=== PATIENT | female | born 1965 | race Hispanic/Latino ===

== ENCOUNTER 2020-01-01 13:06 | Observation (INO) ==
[2020-01-01] MEDS ORDERED: IOPAMIDOL 100 ML BOTTLE IV ONE (13:07)
[2020-01-01] MEDS ORDERED: 0.9 % SODIUM CHLORIDE 1,000 ML IV ONE (13:29)
[2020-01-01] MEDS ORDERED: HYDROmorphone 0.5 MG/0.5 ML SYRINGE IV PRN ×2 (13:33→18:15)
[2020-01-01] MEDS ORDERED: ONDANSETRON 4 MG/2 ML VIAL IV ONE (13:33)
--- NOTE | 2020-01-01 13:33 | Emergency Department Note ---
Syncope HPI General Chief Complaint: Syncope Stated Complaint: syncope Time Seen by Provider: 01/01/20 13:13 Source: patient Mode of arrival: ambulatory Limitations: no limitations History of Present Illness HPI Narrative: 54-year-old female comes in for 2-hour history of right lower quadrant abdominal pain that came on suddenly. No previous history of this. She still has her appendix. As her pain increased in severity she suddenly collapsed. Bystanders were able to catch her and she came around slowly. She did not hurt herself when she collapsed. Denies any fever chills nausea vomiting diarrhea difficulty urinating difficulty breathing or recent illness. Her pain has subsided somewhat Related Data Previous Rx's Medication Instructions Recorded albuterol sulfate 90 mcg/actuation 2 puff INHALATION .q4-6h PRN #8.5 g 03/17/19 aerosol inhaler Allergies Allergy/AdvReac Type Severity Reaction Status Date / Time codeine Allergy Intermediate Anaphylaxis Verified 11/06/19 13:57 Penicillins Allergy Anaphylaxis Verified 11/06/19 13:57 Review of Systems ROS Narrative: Narrative: All systems ED: reviewed and negative except as stated. [facility] Narrative Patient History Narrative: Narrative: Medical/Surgical/Family History All Active Problems (Updated 01/01/20 @ 13:37 by Olvin Lechuga MD) Upper respiratory infection (Acute) Episode of syncope (Acute) Fatty liver (Chronic) Diverticulitis (Acute) Obesity (BMI 30-39.9) (Chronic) Hyperglycemia (Chronic) Hyperlipidemia (Chronic) Osteopenia (Chronic 12/08/14) Asthma (Chronic) Personal history of colonic polyps (Chronic) Family history of colon cancer in mother (Chronic) Leiomyoma of body of uterus (Chronic) Medical History Abdominal pain (Resolved) Acute asthmatic bronchitis (Resolved) Asthma (Chronic) Asthma with acute exacerbation (Resolved) Asthma with exacerbation (Inactive) Bronchitis (Resolved) Bronchitis (Inactive) Colon polyps (Inactive) Depression (Inactive) Diverticulitis (Resolved) Diverticulitis of colon (Resolved 11/09/14) Dr. Muir Diverticulosis of colon (Inactive 12/08/14) Family history of colon cancer in mother (Chronic) Fatigue (Resolved) Fatty liver (Chronic) seen on CT 05/05/19 Hyperglycemia (Chronic) Hyperlipidemia (Chronic) Internal hemorrhoids (Inactive) Left knee pain (Resolved) likely Early OA, responded to PT. Leiomyoma of body of uterus (Chronic) Nausea with vomiting (Resolved) Obesity (BMI 30-39.9) (Chronic) Osteopenia (Chronic 12/08/14) Personal history of colonic polyps (Chronic) Physical exam, annual (Inactive) Rectal bleeding (Inactive) h/o int hemorrhoids, RLQ abdominal pain (Resolved) Viral gastroenteritis (Resolved) Surgical History H/O colonoscopy (Inactive) Micro: Tubular adenoma -- Consult: Polyp, diverticulosis, hemorrhoids -- Co nsult: adenomatous polyp, hemorrhoid, multiple small diverticula 2009 H/O hysterectomy for benign disease (Chronic) H/O removal of cyst (Inactive) November 1983 L breast cyst removal / 1996 had bilateral cyst removal from ovaries. History of esophagogastroduodenoscopy (EGD) (Acute) 04/04/2017-with biopsies Hx of tonsillectomy (Inactive) 1971 Family History Uncle Glaucoma Grandfather Disease of lung Maternal Grandfather; Had lung cancer - was a smoker. Social History Smoking Status: Never smoker Alcohol Intake Frequency: does not drink Substance Use: does not use Exam Narrative Narrative: No acute distress. Resting. Normocephalic atraumatic. Conjunctive are clear sclerae white nonicteric. No nasal discharge or congestion. Oropharynx pink and moist. Neck is supple without lymphadenopathy or thyromegaly. Heart is regular rate and rhythm no murmur appreciated. Lungs clear to auscultation bilaterally without wheezes rales rhonchi or respiratory distress. Abdomen is soft nontender nondistended except for McBurney's point which is markedly tender. Hypoactive bowel sounds. No pedal edema. +2 radial pulse. Alert oriented able to give me reasonable history General Limitations: no limitations Course Vital Signs Vital signs: Vital Signs Temperature 98.0 F 01/01/20 13:07 Pulse Rate 82 01/01/20 13:07 Respiratory Rate 16 01/01/20 13:07 Blood Pressure 132/85 01/01/20 13:07 Pulse Oximetry (%) 100 01/01/20 13:07 Temperature 98.0 F 01/01/20 13:07 Pulse Rate 74 01/01/20 14:14 Respiratory Rate 18 01/01/20 14:14 Blood Pressure 84/57 01/01/20 14:02 Pulse Oximetry (%) 99 01/01/20 14:14 MDM MDM Narrative Medical decision making narrative: Right lower quadrant pain followed by syncopal episode. Suspect acute appendicitis with possible rupture versus anemia versus dehydration versus arrhythmia versus other intra-abdominal pathology. Ordered CT scan of the abdomen and pelvis along with laboratory. Start Dilaudid IV fluids and Zofran. Check orthostatics and EKG CT scan of the abdomen and pelvis came back first and shows acute appendicitis with a size of 1.3 cm. Some stranding with that. She does not have a leukocytosis nor fever at this time however. CMP and urinalysis are still pending I discussed the case with Dr. Zeferino Vyas, general surgeon who agreed to accept the patient for further care and evaluation in the hospital. I wrote transition orders. He will see her when she gets to the hospital floor. In the interim I wrote for a dose of Ancef. Lab Data Result diagrams: 01/01/20 13:50 01/01/20 13:50 Labs: Lab Results 01/01/20 01/01/20 01/01/20 Range/Units 13:50 13:50 13:50 WBC 9.7 (4.50-11.00) K/mcL RBC 4.26 (3.59-5.38) M/mcL Hgb 13.3 (11.2-15.7) g/dL Hct 39.9 (34.1-44.9) % POC Hct 42.0 (36.0-48.0) % MCV 93.7 (80.0-100.0) fL MCH 31.2 (26.0-34.0) pg MCHC 33.3 (31.0-36.0) g/dL RDW 12.4 (11.5-14.5) % Plt Count 277 (140-440) K/mcL MPV 10.6 H (7.4-10.4) fL Gran % 72.0 (38.0-78.0) % Lymph % (Auto) 20.0 (15.5-49.0) % Foster % (Auto) 5.0 (1.0-12.0) % Eos % (Auto) 2.7 (0.0-7.0) % Baso % (Auto) 0.3 (0.0-2.0) % Gran # 6.96 (1.80-8.00) K/mcL Lymph # (Auto) 1.93 (1.50-4.80) K/mcL Foster # (Auto) 0.48 (0.10-0.90) K/mcL Eos # (Auto) 0.26 (0.00-0.70) K/mcL Baso # (Auto) 0.03 (0.00-0.30) K/mcL VBG Lactic Acid 1.0 (0.5-2.0) mmol/L POC Sodium 141 (133-145) mmol/L POC Potassium 3.7 (3.3-5.1) mmol/L POC Chloride 104 (96-108) mmol/L POC Total CO2 26 (22-30) mmol/L POC BUN 11 (6-20) mg/dl POC Creatinine 0.7 (0.6-1.1) mg/dl POC Glucose 136 H (70-105) mg/dL POC WB Ioniz Calcium 1.19 (1.16-1.32) mmol/L EKG Data EKG #1: EKG attestation: Yes I reviewed and interpreted this EKG. EKG results narrative: Normal sinus rhythm without ACS Discharge Plan Patient/Caregiver Discharge Instructions Pt seen by BIOMEDICAL ENGINEERING TECHNOLOGIST/PA only: No Clinical Impression: Episode of syncope Qualifiers: Syncope type: unspecified Qualified Code(s): R55 - Syncope and collapse Patient Disposition: Home, Self-Care Follow up with: Lisbet Rubio DO [Primary Care Provider] - Prescriptions: No Action albuterol sulfate [ProAir HFA] 90 mcg/actuation HFA aerosol inhaler 2 puff inhalation .q4-6h PRN (Reason: cough, shortness of breath, wheezing) Qty: 8.5 RF: 0
[2020-01-01 14:04] LABS: POC Blood Urea Nitrogen 11 mg/dl (6-20); POC CO2 26 mmol/L (22-30); POC Calcium, Ionized 1.19 mmol/L (1.16-1.32); POC Chloride 104 mmol/L (96-108); POC Creatinine 0.7 mg/dl (0.6-1.1); POC Glucose, Random 136 mg/dL (70-105); POC Potassium 3.7 mmol/L (3.3-5.1); POC Sodium 141 mmol/L (133-145)
[2020-01-01 14:35] LABS: Basophils # (Auto) 0.03 K/mcL (0.00-0.30); Basophils % (Auto) 0.3 % (0.0-2.0); Eosinophils # (Auto) 0.26 K/mcL (0.00-0.70); Eosinophils % (Auto) 2.7 % (0.0-7.0); Hematocrit 39.9 % (34.1-44.9); Hemoglobin 13.3 g/dL (11.2-15.7); Lymphocytes # (Auto) 1.93 K/mcL (1.50-4.80); Mean Cell Volume 93.7 fL (80.0-100.0); Mean Corpuscular HGB Conc 33.3 g/dL (31.0-36.0); Mean Platelet Volume 10.6 fL (7.4-10.4); Monocytes # (Auto) 0.48 K/mcL (0.10-0.90); Platelet Count 277 K/mcL (140-440); RBC 4.26 M/mcL (3.59-5.38); Red Cell Distribution Width 12.4 % (11.5-14.5); WBC 9.7 K/mcL (4.50-11.00)
--- NOTE | 2020-01-01 14:43 | Cat Scan Report ---
History: Right lower quadrant pain TECHNIQUE: The patient was imaged following intravenous but no oral contrast scanning from the diaphragm to the symphysis pubis. Sagittal and coronal reformats were created. The radiation exposure was limited using dose reduction technology. FINDINGS: The liver and spleen are normal in size and homogeneous. The gallbladder is partially contracted but appears normal. There are no stones in the bile ducts are nondilated. The pancreas, adrenals and kidneys are normal. There is no kidney stone or hydronephrosis. The appendix is abnormally thickened and inflamed. On the sagittal reformatted view the appendix measures 13 mm in AP dimension. There is no evidence of rupture. No abscess or ascites or free intraperitoneal air are present. There is no bowel obstruction. There is chronic infiltration of the fat at the root of the mesentery. This was seen on prior CT done on 05/05/19 and may be due to chronic low-grade inflammation. No abnormally enlarged lymph nodes are present in the abdomen or pelvis. The urinary bladder is moderately distended with unopacified urine. Patient's had prior partial hysterectomy performed. Neither ovary is clearly identified. The patient reportedly had one of the ovaries removed. IMPRESSION: Acute appendicitis Dr. Lechuga was called with the results Interpreted and Authenticated by: Kirill Morales 01/01/20
[2020-01-01] MEDS ORDERED: ceFAZolin 1 GM VIAL IV ONE (14:48)
[2020-01-01] MEDS ORDERED: ONDANSETRON 4 MG/2 ML VIAL IV PRN ×3 (14:49→18:57)
[2020-01-01] MEDS ORDERED: ALBUTEROL SULFATE 200 PUFF INHALER INH PRN ×3 (14:51→18:57)
[2020-01-01 14:53] LABS: ALT/SGPT 16 U/l (0-40); AST/SGOT 19 U/l (0-37); Albumin 4.6 gm/dL (3.2-5.2); Albumin/Globulin Ratio 1.5 (1.0-2.3); Alkaline Phosphatase 101 U/L (39-117); Bilirubin,Total 0.2 mg/dL (0.0-1.0); Blood Urea Nitrogen 11 mg/dl (6-20); Calcium 9.7 mg/dl (8.6-10.4); Carbon Dioxide 25 mmol/L (22-30); Chloride 102 mmol/L (96-108); Glomerular Filtration Rate 97; Glucose 133 mg/dL (70-105)
[2020-01-01 14:57] LABS: INR 0.8 (0.9-1.1)
[2020-01-01] MEDS ORDERED: LEVOFLOXACIN 750 MG/150 ML BAG IV ONE (15:49)
--- NOTE | 2020-01-01 16:04 | General Surg History&Physical ---
HPI History of Present Illness Patient information: Note initiated : 01/01/20 at 3:59 pm Service Date, if different from initiated Date: [] Patient: Mary Morales a 54 y/o F admitted on 01/01/20 for syncope. Chief Complaint: [] Chief complaint: abdominal pain History of present illness: Ms. Morales is a 54 year old F acute OF right lower quadrant pain about 10:30 this morning. The pain became progressively worse until she started to feel dizzy and had a syncopal episode. She was transferred to the emergency room where evaluation revealed inflammation of the appendix with periappendiceal edema compatible with acute appendicitis. She did not have nausea vomiting. She has not had similar difficulty. Review of Systems All systems: reviewed and no additional remarkable complaints except as stated PFSH [facility] Medical History Abdominal pain (Resolved) Acute asthmatic bronchitis (Resolved) Asthma (Chronic) Asthma with acute exacerbation (Resolved) Asthma with exacerbation (Inactive) Bronchitis (Resolved) Bronchitis (Inactive) Colon polyps (Inactive) Depression (Inactive) Diverticulitis (Resolved) Diverticulitis of colon (Resolved 11/09/14) Dr. Miur Diverticulosis of colon (Inactive 12/08/14) Family history of colon cancer in mother (Chronic) Fatigue (Resolved) Fatty liver (Chronic) seen on CT 05/05/19 Hyperglycemia (Chronic) Hyperlipidemia (Chronic) Internal hemorrhoids (Inactive) Left knee pain (Resolved) likely Early OA, responded to PT. Leiomyoma of body of uterus (Chronic) Nausea with vomiting (Resolved) Obesity (BMI 30-39.9) (Chronic) Osteopenia (Chronic 12/08/14) Personal history of colonic polyps (Chronic) Physical exam, annual (Inactive) Rectal bleeding (Inactive) h/o int hemorrhoids, RLQ abdominal pain (Resolved) Viral gastroenteritis (Resolved) Surgical History H/O colonoscopy (Inactive) Micro: Tubular adenoma -- Consult: Polyp, diverticulosis, hemorrhoids -- Consult: adenomatous polyp, hemorrhoid, multiple small diverticula 2009 H/O hysterectomy for benign disease (Chronic) H/O removal of cyst (Inactive) November 1983 L breast cyst removal / 1996 had bilateral cyst removal from ovaries. History of esophagogastroduodenoscopy (EGD) (Acute) 04/04/2017-with biopsies Hx of tonsillectomy (Inactive) 1971 Family History Uncle Glaucoma Grandfather Disease of lung Maternal Grandfather; Had lung cancer - was a smoker. 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 smoking status: Never smoker alcohol intake frequency: does not drink substance use type: does not use MEDS/ALLERGIES Home Medications and Allergies Home Medications Medication Instructions Recorded Confirmed Type albuterol sulfate 90 mcg/actuation 2 puff INHALATION .q4-6h PRN #8.5 g 03/17/19 01/01/20 Rx aerosol inhaler Allergies Allergy/AdvReac Type Severity Reaction Status Date / Time codeine Allergy Severe Anaphylaxis Verified 01/01/20 15:54 Penicillins Allergy Severe Anaphylaxis Verified 01/01/20 15:54 Physical Examination Vital Signs Vital signs: Temp Pulse Resp BP Pulse Ox 97.5 F 93 H 18 129/77 98 01/01/20 15:52 01/01/20 15:52 01/01/20 15:52 01/01/20 15:52 01/01/20 15:52 General physical appearance General physical exam: well developed, well nourished and no distress Eyes Eye exam: PERRL and normal ocular movement; negative pale and icteric ENT ENT exam: normal pinna, normal nares and normal mucosa; negative no hearing loss Head Head exam IM: Present atraumatic, normal inspection and normocephalic Neck Neck exam: no masses, no bruits, trachea midline, no lymphadenopathy and no venous distension Cardiovascular Cardiovascular exam IM: Present normal rate and rhythm, RRR, +S1 and +S2; Absent gallop and JVD Respiratory Respiratory exam: normal expansion, normal respiratory effort, clear to percussion, clear to auscultation and other Abdomen Abdomen: Present soft, tender (tenderness in right lower quadrant with guarding) and bowel sounds (normal active bowel sounds); Absent organomegaly Integumentary Integumentary: Present no rash, no growths, no abnormal pigmentation and other Neurologic Neurologic: Present normal coordination and normal sensation; Absent confused and memory loss Musculoskeletal Musculoskeletal: Present normal gait, normal posture and other Psychiatric Psychiatric: Present oriented to time, oriented to person, oriented to place, speech is normal, memory intact and other Results Labs Result diagrams: 01/01/20 13:50 01/01/20 13:50 Labs: Abnormal lab results 01/01/20 01/01/20 01/01/20 Range/Units 13:50 13:50 13:50 MPV 10.6 H (7.4-10.4) fL INR 0.8 L (0.9-1.1) Glucose 133 H (70-105) mg/dL POC Glucose 136 H (70-105) mg/dL Diabetes panel 01/01/20 Range/Units 13:50 Sodium 139 (133-145) mmol/L Potassium 3.7 (3.3-5.1) mmol/L Chloride 102 (96-108) mmol/L Carbon Dioxide 25 (22-30) mmol/L BUN 11 (6-20) mg/dl Creatinine 0.7 (0.6-1.1) mg/dl Glucose 133 H (70-105) mg/dL Calcium 9.7 (8.6-10.4) mg/dl AST 19 (0-37) U/l ALT 16 (0-40) U/l Alkaline Phosphatase 101 (39-117) U/L Total Protein 7.6 (5.9-8.4) gm/dL Albumin 4.6 (3.2-5.2) gm/dL Calcium panel 01/01/20 Range/Units 13:50 Calcium 9.7 (8.6-10.4) mg/dl Albumin 4.6 (3.2-5.2) gm/dL Pituitary panel 01/01/20 Range/Units 13:50 Sodium 139 (133-145) mmol/L Potassium 3.7 (3.3-5.1) mmol/L Chloride 102 (96-108) mmol/L Carbon Dioxide 25 (22-30) mmol/L BUN 11 (6-20) mg/dl Creatinine 0.7 (0.6-1.1) mg/dl Glucose 133 H (70-105) mg/dL Calcium 9.7 (8.6-10.4) mg/dl Adrenal panel 01/01/20 Range/Units 13:50 Sodium 139 (133-145) mmol/L Potassium 3.7 (3.3-5.1) mmol/L Chloride 102 (96-108) mmol/L Carbon Dioxide 25 (22-30) mmol/L BUN 11 (6-20) mg/dl Creatinine 0.7 (0.6-1.1) mg/dl Glucose 133 H (70-105) mg/dL Calcium 9.7 (8.6-10.4) mg/dl Total Bilirubin 0.2 (0.0-1.0) mg/dL AST 19 (0-37) U/l ALT 16 (0-40) U/l Alkaline Phosphatase 101 (39-117) U/L Total Protein 7.6 (5.9-8.4) gm/dL Albumin 4.6 (3.2-5.2) gm/dL All other labs normal. Imaging Chest x-ray: report reviewed and image reviewed CT scan - abdomen: report reviewed and image reviewed A/P Narrative A/P Narrative: Narrative:acute appendicitis Plan laparoscopic appendectomy Time Spent With Patient Time: Total time spent is greater than 50% in coordination of care (as documented) at patient's floor/unit and/or counseling patient: Total time spent with greater than 50% in coordination of care (as documented) at patient's floor/unit and/or counseling patient:: 25 - 35 minutes
[2020-01-01] MEDS ORDERED: KETOROLAC 30 MG/ML VIAL IV PRN (16:51)
[2020-01-01] MEDS ORDERED: fentaNYL 100 MCG/2 ML VIAL IV PRN (16:51)
[2020-01-01] MEDS ORDERED: BENZOCAINE/MENTHOL 1 LOZENGE PO PRN (16:51)
[2020-01-01] MEDS ORDERED: PROMETHAZINE 25 MG/ML VIAL IV PRN (16:51)
[2020-01-01] MEDS ORDERED: NALOXONE HCL 0.4 MG/ML VIAL IV PRN (16:51)
[2020-01-01] MEDS ORDERED: diphenhydrAMINE 50 MG/ML VIAL IV PRN (16:51)
[2020-01-01] MEDS ORDERED: IPRATROPIUM/ALBUTEROL 3 ML AMPUL.NEB NEB PRN (16:51)
[2020-01-01] MEDS ORDERED: MEPERIDINE 25 MG/ML SYRINGE IV PRN (16:51)
[2020-01-01] MEDS ORDERED: ACETAMINOPHEN 900 MG/90 ML BOTTLE IV ONE (16:51)
[2020-01-01] MEDS ORDERED: LACTATED RINGERS 250 ML IV PRN (16:51)
[2020-01-01] MEDS ORDERED: LACTATED RINGERS 1,000 ML IV SCH (17:00)
[2020-01-01] MEDS ORDERED: fentaNYL 100 MCG/2 ML VIAL IV ONE (17:09)
[2020-01-01] MEDS ORDERED: SUCCINYLCHOLINE 20 MG/ML ML IV ONE (17:09)
[2020-01-01] MEDS ORDERED: diphenhydrAMINE 50 MG/ML VIAL ONE (17:09)
[2020-01-01] MEDS ORDERED: LIDOCAINE HCL/PF 100 MG/5 ML SYRINGE IV ONE (17:09)
[2020-01-01] MEDS ORDERED: KETAMINE 10 MG/ML ML ONE (17:09)
[2020-01-01] MEDS ORDERED: DEXAMETHASONE 10 MG/ML VIAL ONE (17:09)
[2020-01-01] MEDS ORDERED: SUGAMMADEX SODIUM 200 MG/2 ML VIAL IV ONE (17:09)
[2020-01-01] MEDS ORDERED: ONDANSETRON 4 MG/2 ML VIAL ONE (17:09)
[2020-01-01] MEDS ORDERED: PROPOFOL 200 MG/20 ML VIAL IV ONE (17:09)
[2020-01-01] MEDS ORDERED: ROCURONIUM 10 MG/ML ML IV ONE (17:09)
--- NOTE | 2020-01-01 17:55 | Brief Operative Note ---
Brief Operative Note Date of procedure: 01/01/20 Pre-op diagnosis: acute appendicitis Post-op diagnosis: other (acute appendicitis) Procedure: laparoscopic appendectomy Grafts/Implants: No Anesthesia: GETA Findings: early acute appendicitis Complications: none Surgeon: Carla Vyas Specimens Removed/Pathology: other (appendix) Condition: stable Disposition: PACU
--- NOTE | 2020-01-01 17:56 | Brief Operative Note ---
Brief Operative Note Date of procedure: 01/01/20 Surgeon: Carla Vyas
[2020-01-01] MEDS ORDERED: 0.9 % SODIUM CHLORIDE 1,000 ML IV SCH (18:00)
[2020-01-01] MEDS ORDERED: ACETAMINOPHEN 1,000 MG in PREMIX 1 BAG IV SCH (18:00)
[2020-01-01] MEDS ORDERED: oxyCODONE HCL 5 MG TABLET PO PRN (18:00)
[2020-01-01] MEDS: 0.9 % SODIUM CHLORIDE 1,000 ML IV SCH (19:46)
[2020-01-01] MEDS ORDERED: ZOLPIDEM 5 MG TABLET PO PRN ×2 (21:00)
[2020-01-01] MEDS: ACETAMINOPHEN 900 MG/90 ML BOTTLE IV PRN (23:43)
[2020-01-02] MEDS: oxyCODONE HCL 5 MG TABLET PO PRN ×2 (03:16→08:53)
[2020-01-02] MEDS: 0.9 % SODIUM CHLORIDE 1,000 ML IV SCH ×2 (03:48→12:50)
[2020-01-02] MEDS: ACETAMINOPHEN 900 MG/90 ML BOTTLE IV PRN (06:13)
[2020-01-02 07:28] LABS: Basophils # (Auto) 0.01 K/mcL (0.00-0.30); Basophils % (Auto) 0.1 % (0.0-2.0); Eosinophils # (Auto) 0 K/mcL (0.00-0.70); Eosinophils % (Auto) 0 % (0.0-7.0); Hematocrit 34.3 % (34.1-44.9); Hemoglobin 11.1 g/dL (11.2-15.7); Lymphocytes % (Auto) 5.6 % (15.5-49.0); Mean Cell Volume 96.3 fL (80.0-100.0); Mean Corpuscular HGB Conc 32.4 g/dL (31.0-36.0); Mean Platelet Volume 11.1 fL (7.4-10.4); Monocytes # (Auto) 0.29 K/mcL (0.10-0.90); Monocytes % (Auto) 2.3 % (1.0-12.0); Platelet Count 232 K/mcL (140-440); RBC 3.56 M/mcL (3.59-5.38); Red Cell Distribution Width 12.1 % (11.5-14.5); WBC 12.5 K/mcL (4.50-11.00)
--- NOTE | 2020-01-02 13:27 | Discharge Summary ---
Discharge Provider Provider Patient information: Note initiated : 01/02/20 at 1:22 pm Service Date, if different from initiated Date: [] Patient: Mary Morales 54 y/o F admitted on 01/01/20 for syncope. Chief Complaint: [] Date of admission: 01/01/20 15:28 Discharge date: 01/02/20 Primary care physician: Lisbet Rubio DO Admitting clinician: Carla Vyas Attending physician on admission: Carla Vyas Attending physician on discharge: Carla Vyas Discharging clinician: Carla Vyas COURSE Hospital Course Hospital Course: 54-year-old female with about an 8 hour history of right lower quadrant pain. The pain became progressively worse and she had a near syncopal episode due to pain. She was seen in the emergency room and was noted to have a tender abdomen. CT of the abdomen showed acute appendicitis with thickened appendix with periappendiceal tissue edema. She had laparoscopic appendectomy which went uneventfully. She has recovered from that and has only mild incisional discomf ort. She is tolerating diet and is having regular flatus. She does not have abdominal distention. She is stable for discharge home. Discharge diagnosis: acute appendicitis Reason for admission: acute appendicitis Procedures: laparoscopic appendectomy Pertinent studies/significant findings: CT of abdomen and pelvis with contrast Complications: none Time Spent with Patient Time attestation: Total time spent providing and/or coordinating discharge services: Physical Examination Vital Signs Vital signs: Temp Pulse Resp BP Pulse Ox 98.0 F 85 16 100/65 95 01/02/20 12:00 01/02/20 12:00 01/02/20 12:00 01/02/20 12:00 01/02/20 12:00 Eyes Eye exam: PERRL and normal ocular movement; negative pale and icteric ENT ENT exam: normal pinna, normal nares and normal mucosa; negative no hearing loss Head Head exam IM: Present atraumatic, normal inspection and normocephalic Cardiovascular Cardiovascular exam IM: Present normal rate and rhythm, RRR, +S1 and +S2; Absent gallop and JVD Respiratory Respiratory exam: normal expansion, normal respiratory effort, clear to percussion, clear to auscultation and other Abdomen Abdomen: Present soft, tender (mild tenderness around port sites only; no tenderness in right lower quadrant) and surgical scars (port sites are unremarkable without bleeding) Neurologic Neurologic: Present normal coordination and normal sensation; Absent confused and memory loss Musculoskeletal Musculoskeletal: Present normal gait, normal posture and other Psychiatric Psychiatric: Present oriented to time, oriented to person, oriented to place, speech is normal, memory intact and other Discharge Plan Patient/Caregiver Discharge Instructions Activity: increase activity as tolerated Diet: Regular Diet Activity Restrictions/Additional Instructions: may resume activity as tolerated; no lifting restrictions Prescriptions: New oxycodone 5 mg Tablet 10 mg PO Q4HP PRN (Reason: Per Pain Protocol) Qty: 20 RF: 0 Continued albuterol sulfate [ProAir HFA] 90 mcg/actuation HFA aerosol inhaler 2 puff inhalation .q4-6h PRN (Reason: cough, shortness of breath, wheezing) Qty: 8.5 RF: 0 Follow Up Plan Follow up with: Lisbet Rubio DO [Primary Care Provider] - Carla Vyas MD [Physician] - (contact the office on Saturday for an appoi ntment in 2 weeks) Patient Disposition: Home, Self-Care Assessment: patient is stable and is discharged home in satisfactory condition Prognosis: Good Rehab Potential: Good I certify that the patient requires SNF services: No Overall status at discharge: patient is progressing back to baseline Discharge Orders: Discharge Order (Routine); Ordered 01/02/20 Ordered By: Carla Vyas Pending Pending Pending: Resuscitation Status Full Code Diet Full Liquid Diet Start SatDec 31 180 Acetaminophen (Ofirmev) 900 mg in 90 mls @ 180 mls/hr IV Q6HP PRN PRN Reason: PAIN/FEVER > 101 Stop: 01/02/20 18:01 Last Admin: 01/02/20 06:13 Dose: 180 mls/hr Documented by: Infusion: 01/02/20 00:19 Dose: 0 mls/hr Documented by: Admin: 01/01/20 23:43 Dose: 180 mls/hr Documented by: JAKOB Sodium Chloride (Sodium Chloride 0.9%) 1,000 mls @ 150 mls/hr IV .Q6H40M [facility] Last Admin: 01/02/20 12:50 Dose: Not Given Documented by: [email or web address] Admin: 01/02/20 03:48 Dose: 150 mls/hr Documented by: Infusion: 01/02/20 02:27 Dose: 150 mls/hr Documented by: Admin: 01/01/20 19:46 Dose: 150 mls/hr Documented by: JAKOB Oxycodone HCl (Roxicodone) 10 mg PO Q4HP PRN; Protocol PRN Reason: Per Pain Protocol Last Admin: 01/02/20 08:53 Dose: 10 mg Documented by: [email or web address] Admin: 01/02/20 03:16 Dose: 10 mg Documented by: JAKOB Shift Summary 01/02/20 04:30 Shift Summary by Karyna Oh Patient came back from PACU at 1849H. Patient drowsy at start of shift but more alert this morning. A+O x4. Medicated with PRN Ofirmevx1 and Roxicodone 10mg x1 with moderate effect. Up with standby assist to the bathroom. Uses pillow to guard her incision. Tolerating full liquid diet. No nausea or vomiting. IVF NS@150 infusing well on right hand. 3 lap sites, gino and tegaderm CDI with scant drainage under tegaderm dressing. Ambulated in hallway 200 ft using gait belt and standby assist. Voids adequately, PVR 19 mls. Reported belching and passing flatus. Patient's Ramón mendoza visited last night waited in pt's room until she got back from PACU. BP 90-100 mmHg/50 mmHg. Tachycardic 90-100's HR. Afebrile. Initialized on 01/02/20 04:30 - END OF NOTE
--- NOTE | 2020-01-04 12:36 | Operative Note ---
DATE OF OPERATION: 01/01/2020 PREOPERATIVE DIAGNOSIS: Acute appendicitis. POSTOPERATIVE DIAGNOSIS: Acute appendicitis. PROCEDURE: Laparoscopic appendectomy. SURGEON: Carla Vyas M.D. FINDINGS: Acute appendicitis. DESCRIPTION OF PROCEDURE: Under general anesthesia, the patient's abdomen was prepped and draped in a sterile field. Supraumbilical incision was made and a Veress needle was inserted. The abdomen was insufflated with 2 liters of C02. A 12 mm port was placed. Laparoscope was placed. Under videoscopic guidance, a 5 mm port was placed in the suprapubic midline and a 12 mm port in the left lower quadrant. The patient was placed in deep Trendelenburg position and rotated to the left. The appendix was found at the base of the cecum, and there was an appendicolith in the mid-portion of the appendix. The appendix was grasped with a self-retaining grasper. There was minimal mesoappendix at the base of the appendix and the mesoappendix was transected using an Endo ADE stapler. There was no bleeding. The appendix was placed in an Endopouch and retrieved. Copious irrigation was carried out in the right gutter and in the pelvis. There was no need for a drain. The patient tolerated the procedure well. CO2 was allowed to escape from the abdomen, and the ports were removed. Fascia at umbilicus was closed with 0 Vicryl. The skin incisions were closed with gino. Tegaderm dressings were placed. The patient tolerated the procedure well. She was awakened, transferred to a bed, and taken to the postanesthetic care unit in stable, satisfactory condition. LCS:jenny Job ID: [id number] Doc ID: [id number] Carla Vyas M.D.
--- NOTE | 2020-01-05 15:29 | Surgical Pathology Report ---
HISTOLOGY SPECIMEN MICROSCOPIC DIAGNOSIS APPENDIX, APPENDECTOMY: -- APPENDIX WITH EARLY FIBROADIPOSE NARROWING OF LUMEN. -- NO SIGNIFICANT ACUTE INFLAMMATION IDENTIFIED. (ACP:adj) PROCEDURAL IMPRESSION Appendicitis. GROSS DESCRIPTION Received in formalin labeled with the patient information and designated appendix, is a 5.5 cm long by up to 1 cm in diameter whittaker-singh appendix with 0.8 cm of attached yellow-singh adipose tissue. A portion of the margin is stapled closed. The lumen contains soft brown fecal material. Grossly no perforations are identified. Totally submitted - two cassettes. (STS:adj) Electronically Signed by: Omar Morales M.D.
== END 2020-01-02 14:30 | disposition home or self-care (01) ==
LOC: ED 13:06 → MEDSUR 13:06
PROVIDERS: ADMIT Family Medicine Adult Medicine; ATTEND Family Medicine Adult Medicine